=== PATIENT | male | born 1955 | race Two or more races ===

== ENCOUNTER 2021-12-04 20:24 | Inpatient (IN) | payer MEDICARE, OTHER ==
[~2021-12-04] VITALS: Ht 180.3 cm; Wt 64.9 kg
[~2021-12-04 20:24] MED LIST: ACETYLCYSTEINE; ALBUTEROL; APIX2.5T PO; ATOR40TA70 PO; FLEET ENEMA; INSU100V37 SQ; KEPP500 PO; LEVO750T46 PO; METO-411 PO; MIDO10TA PO; MIRT7.5T11 PO; MOM PO; RISP0.2514 PO; SPIR25TA6 PO
[2021-12-04 22:52] LABS: BASOPHILS % 0.5 % (0.0-2.0); EOSINOPHILS % 0.9 % (0.0-5.0); HEMATOCRIT. 35.5 % (42.0-52.0); LYMPHOCYTES % 14.5 % (20.0-50.0); MEAN CORPUSCULAR VOLUME 90.5 fL (80.0-94.0); MEAN PLATELET VOLUME 9.7 fl (7.4-10.4); MONOCYTES % 11.7 % (2.0-8.0); NEUTROPHILS % 72.4 % (40.0-76.0); PLATELET 151 x1000/uL (130-400); RED BLOOD CELL COUNT 3.93 mill/uL (4.7-6.1); RED CELL DISTRIBUTION WIDTH 15.2 % (11.6-14.6)
[2021-12-04 22:58] LABS: CHLORIDE 101 mEq/L (98-107)
[2021-12-05] MEDS ORDERED: METOPROLOL SUCCINATE 50MG ER TABLET PO SCH (09:00)
[2021-12-05] MEDS ORDERED: ACETAMINOPHEN 325MG TABLET PO PRN (10:00)
[2021-12-05] MEDS ORDERED: ONDANSETRON HCL 4MG/2ML INJ IV PRN (10:00)
[2021-12-05] MEDS ORDERED: HYDRALAZINE 20MG/ML VIAL IV PRN (11:45)
[2021-12-05] MEDS ORDERED: METOPROLOL TARTRATE 50MG TABLET PO NR (12:00)
[2021-12-05 19:24] VITALS: BP 151/101
[2021-12-05 20:00] VITALS: BP 162/98
[2021-12-05] MEDS: LEVETIRACETAM 500MG TABLET PO SCH (22:01)
[2021-12-05] MEDS: METOPROLOL TARTRATE 50MG TABLET PO SCH (22:02)
[2021-12-06] VITALS: BP 144/82
[2021-12-06 04:00] VITALS: BP 144/95
[2021-12-06 08:00] VITALS: BP 142/104
[2021-12-06] MEDS: LEVETIRACETAM 500MG TABLET PO SCH ×2 (08:59→22:00)
[2021-12-06] MEDS: METOPROLOL TARTRATE 50MG TABLET PO SCH ×2 (08:59→22:00)
[2021-12-06 12:00] VITALS: BP 128/98
[2021-12-06 16:00] VITALS: BP 148/98
[2021-12-06 20:00] VITALS: BP 145/89
[2021-12-07] VITALS: BP 139/88
[2021-12-07 04:00] VITALS: BP 145/88
[2021-12-07 07:31] LABS: BASOPHILS % 0.2 % (0.0-2.0); EOSINOPHILS % 0.3 % (0.0-5.0); HEMATOCRIT. 33.7 % (42.0-52.0); HEMOGLOBIN. 10.9 g/dL (14.0-18.0); LYMPHOCYTES % 10.7 % (20.0-50.0); MEAN CORPUSCULAR HEMOGLOBIN 28.4 pg (28.0-32.0); MEAN CORPUSCULAR VOLUME 87.7 fL (80.0-94.0); MEAN PLATELET VOLUME 9.6 fl (7.4-10.4); MONOCYTES % 9.6 % (2.0-8.0); NEUTROPHILS % 79.2 % (40.0-76.0); PLATELET 208 x1000/uL (130-400); RED BLOOD CELL COUNT 3.84 mill/uL (4.7-6.1); RED CELL DISTRIBUTION WIDTH 15.5 % (11.6-14.6)
[2021-12-07 07:45] VITALS: BP 147/76
[2021-12-07] MEDS: LEVETIRACETAM 500MG TABLET PO SCH ×2 (08:27→20:48)
[2021-12-07] MEDS: METOPROLOL TARTRATE 50MG TABLET PO SCH ×2 (08:27→20:50)
[2021-12-07 12:00] VITALS: BP 130/65
[2021-12-07 14:37] LABS: PHOSPHORUS 5.4 mg/dL (2.5-4.9)
[2021-12-07 16:10] VITALS: BP 123/69
[2021-12-07] MEDS: PANTOPRAZOLE SODIUM 40 MG/VIAL IV SCH (17:35)
[2021-12-07 19:19] LABS: FOLIC ACID (FOLATE) SERUM 9.2 ng/mL (>5.38)
[2021-12-07 20:00] VITALS: BP 153/85
[2021-12-08] VITALS: BP 138/83
[2021-12-08 04:00] VITALS: BP 159/92
[2021-12-08 06:34] LABS: BASOPHILS % 0.4 % (0.0-2.0); EOSINOPHILS % 0.3 % (0.0-5.0); HEMATOCRIT. 35.3 % (42.0-52.0); HEMOGLOBIN. 11.3 g/dL (14.0-18.0); LYMPHOCYTES % 12.8 % (20.0-50.0); MEAN CORPUSCULAR HEMOGLOBIN 28.1 pg (28.0-32.0); MEAN CORPUSCULAR VOLUME 87.8 fL (80.0-94.0); MEAN PLATELET VOLUME 9.4 fl (7.4-10.4); MONOCYTES % 11.5 % (2.0-8.0); PLATELET 185 x1000/uL (130-400); RED BLOOD CELL COUNT 4.02 mill/uL (4.7-6.1); RED CELL DISTRIBUTION WIDTH 15.2 % (11.6-14.6)
[2021-12-08 08:00] VITALS: BP 144/92
[2021-12-08] MEDS: LEVETIRACETAM 500MG TABLET PO SCH ×2 (08:20→21:03)
[2021-12-08] MEDS: PANTOPRAZOLE SODIUM 40 MG/VIAL IV SCH (08:20)
[2021-12-08] MEDS: METOPROLOL TARTRATE 50MG TABLET PO SCH ×2 (08:21→21:04)
[2021-12-08 12:00] VITALS: BP 127/86
[2021-12-08 16:03] VITALS: BP 125/82
[2021-12-08 20:02] VITALS: BP 141/84
[2021-12-08] MEDS: ATORVASTATIN CALCIUM 40MG TABLET PO SCH (21:03)
[2021-12-09] VITALS: BP 129/81
[2021-12-09 04:00] VITALS: BP 125/74
[2021-12-09 06:19] LABS: BASOPHILS % 0.2 % (0.0-2.0); EOSINOPHILS % 0.5 % (0.0-5.0); HEMOGLOBIN. 11.2 g/dL (14.0-18.0); LYMPHOCYTES % 10.5 % (20.0-50.0); MEAN CORPUSCULAR HEMOGLOBIN 27.9 pg (28.0-32.0); MEAN CORPUSCULAR VOLUME 87.1 fL (80.0-94.0); MEAN PLATELET VOLUME 9.2 fl (7.4-10.4); MONOCYTES % 10.7 % (2.0-8.0); NEUTROPHILS % 78.1 % (40.0-76.0); PLATELET 180 x1000/uL (130-400); RED BLOOD CELL COUNT 4.02 mill/uL (4.7-6.1); RED CELL DISTRIBUTION WIDTH 15.6 % (11.6-14.6)
[2021-12-09 08:00] VITALS: BP 124/89
[2021-12-09] MEDS: PANTOPRAZOLE SODIUM 40 MG/VIAL IV SCH (08:15)
[2021-12-09] MEDS: METOPROLOL TARTRATE 50MG TABLET PO SCH ×2 (08:15→20:59)
[2021-12-09] MEDS: ASPIRIN 325MG EC TABLET PO SCH (08:15)
[2021-12-09] MEDS: LEVETIRACETAM 500MG TABLET PO SCH ×2 (08:15→20:58)
[2021-12-09] MEDS ORDERED: DEXT 5%/0.9% NACL 1,000 ML IV SCH (10:30)
[2021-12-09 12:00] VITALS: BP 130/89
[2021-12-09 16:00] VITALS: BP 130/98
[2021-12-09] MEDS: DEXT 5%/0.9% NACL 1,000 ML IV SCH (18:10)
[2021-12-09 20:00] VITALS: BP 136/94
[2021-12-09] MEDS: ATORVASTATIN CALCIUM 40MG TABLET PO SCH (20:59)
[2021-12-10] VITALS: BP 140/90
[2021-12-10 04:00] VITALS: BP 127/88
[2021-12-10 06:44] LABS: CHLORIDE 97 mEq/L (98-107)
[2021-12-10 06:58] LABS: BASOPHILS % 0.4 % (0.0-2.0); EOSINOPHILS % 0.6 % (0.0-5.0); HEMATOCRIT. 37.1 % (42.0-52.0); HEMOGLOBIN. 11.9 g/dL (14.0-18.0); LYMPHOCYTES % 9.2 % (20.0-50.0); MEAN PLATELET VOLUME 9.5 fl (7.4-10.4); MONOCYTES % 10.9 % (2.0-8.0); NEUTROPHILS % 78.9 % (40.0-76.0); PLATELET 148 x1000/uL (130-400); RED BLOOD CELL COUNT 4.26 mill/uL (4.7-6.1); RED CELL DISTRIBUTION WIDTH 15.6 % (11.6-14.6)
[2021-12-10 08:00] VITALS: BP 152/98
[2021-12-10] MEDS: ASPIRIN 325MG EC TABLET PO SCH (09:32)
[2021-12-10] MEDS: PANTOPRAZOLE SODIUM 40 MG/VIAL IV SCH (09:33)
[2021-12-10] MEDS: DEXT 5%/0.9% NACL 1,000 ML IV SCH (09:33)
[2021-12-10] MEDS: LEVETIRACETAM 500MG TABLET PO SCH ×2 (09:33→20:30)
[2021-12-10] MEDS: METOPROLOL TARTRATE 50MG TABLET PO SCH ×2 (09:33→20:30)
[2021-12-10 12:00] VITALS: BP 131/89
[2021-12-10] MEDS ORDERED: SODIUM POLYSTYRENE SULFONATE 15 G/60 ML BOT NG SCH (12:30)
[2021-12-10 16:00] VITALS: BP 141/93
[2021-12-10] MEDS: FERROUS SULFATE 325MG TABLET PO SCH (18:35)
[2021-12-10 20:00] VITALS: BP 134/91
[2021-12-10] MEDS: ATORVASTATIN CALCIUM 40MG TABLET PO SCH (20:30)
[2021-12-11] VITALS: BP 133/94
[2021-12-11] MEDS ORDERED: DILTIAZEM HCL 5MG/ML 5ML VIAL IV NR ×2 (03:30)
[2021-12-11 04:00] VITALS: BP 127/86
[2021-12-11 08:00] VITALS: BP 136/94
[2021-12-11] MEDS: ASPIRIN 325MG EC TABLET PO SCH (09:00)
[2021-12-11] MEDS: PANTOPRAZOLE SODIUM 40 MG/VIAL IV SCH (09:00)
[2021-12-11] MEDS: METOPROLOL TARTRATE 50MG TABLET PO SCH ×2 (09:00→21:43)
[2021-12-11] MEDS: LEVETIRACETAM 500MG TABLET PO SCH (09:00)
[2021-12-11] MEDS: FERROUS SULFATE 325MG TABLET PO SCH (09:00)
[2021-12-11 09:30] LABS: BASOPHILS % 0.4 % (0.0-2.0); EOSINOPHILS % 0.8 % (0.0-5.0); HEMATOCRIT. 34.9 % (42.0-52.0); HEMOGLOBIN. 11.1 g/dL (14.0-18.0); LYMPHOCYTES % 9.6 % (20.0-50.0); MEAN CORPUSCULAR HEMOGLOBIN 27.5 pg (28.0-32.0); MEAN CORPUSCULAR VOLUME 86.1 fL (80.0-94.0); MEAN PLATELET VOLUME 9.2 fl (7.4-10.4); MONOCYTES % 12.2 % (2.0-8.0); PLATELET 149 x1000/uL (130-400); RED BLOOD CELL COUNT 4.05 mill/uL (4.7-6.1); RED CELL DISTRIBUTION WIDTH 15.4 % (11.6-14.6)
[2021-12-11 09:38] LABS: INR 1.1; PROTHROMBIN TIME 11.5 sec (9.6-11.0)
[2021-12-11] MEDS ORDERED: PROPOFOL 200MG/20ML VIAL IV ONE (09:57)
[2021-12-11] MEDS ORDERED: CEFAZOLIN 1000MG PREMIX 50 ML IV SCH (10:00)
[2021-12-11] MEDS ORDERED: ONDANSETRON HCL 4MG/2ML INJ ONE (10:05)
[2021-12-11] MEDS ORDERED: LIDOCAINE HCL 1% 10 MG/ML 10ML VIAL ONE (10:05)
[2021-12-11] MEDS ORDERED: DEXAMETHASONE 4MG/ML 1ML VIAL ONE (10:05)
[2021-12-11 13:00] VITALS: BP 113/73
[2021-12-11] MEDS: THIAMINE HCL 100MG TABLET GT SCH (13:00)
[2021-12-11 16:00] VITALS: BP 127/79
[2021-12-11] MEDS ORDERED: SODIUM POLYSTYRENE SULFONATE 15 G/60 ML BOT PO NR (18:15)
[2021-12-11 20:00] VITALS: BP 121/67
[2021-12-11] MEDS: LEVETIRACETAM 500MG/5ML CUP GT SCH (21:42)
[2021-12-11] MEDS: ATORVASTATIN CALCIUM 40MG TABLET PO SCH (21:42)
[2021-12-12] VITALS (7 sets, daily range): BP systolic 112–139; BP diastolic 67–85
[2021-12-12] MEDS: DILTIAZEM HCL 30MG TABLET PO SCH ×3 (06:12→22:31)
[2021-12-12] MEDS: PANTOPRAZOLE SODIUM 40 MG/VIAL IV SCH (09:24)
[2021-12-12] MEDS: METOPROLOL TARTRATE 50MG TABLET PO SCH ×2 (09:25→22:32)
[2021-12-12] MEDS: THIAMINE HCL 100MG TABLET GT SCH (09:25)
[2021-12-12] MEDS: ASPIRIN 325MG TABLET GT SCH (09:26)
[2021-12-12] MEDS: LEVETIRACETAM 500MG/5ML CUP GT SCH ×2 (09:26→22:31)
[2021-12-12] MEDS: FERROUS SULFATE 300MG/5ML UDC GT SCH ×2 (09:26→17:47)
[2021-12-12] MEDS: ATORVASTATIN CALCIUM 40MG TABLET PO SCH (22:32)
[2021-12-13] VITALS (7 sets, daily range): BP systolic 103–141; BP diastolic 60–73
[2021-12-13] MEDS: DILTIAZEM HCL 30MG TABLET PO SCH ×3 (06:00→21:40)
[2021-12-13] MEDS: LEVETIRACETAM 500MG/5ML CUP GT SCH ×2 (08:53→21:41)
[2021-12-13] MEDS: PANTOPRAZOLE SODIUM 40 MG/VIAL IV SCH (08:53)
[2021-12-13] MEDS: FERROUS SULFATE 300MG/5ML UDC GT SCH ×2 (08:53→17:42)
[2021-12-13] MEDS: METOPROLOL TARTRATE 50MG TABLET PO SCH ×2 (08:54→21:41)
[2021-12-13] MEDS: ASPIRIN 325MG TABLET GT SCH (08:54)
[2021-12-13] MEDS: THIAMINE HCL 100MG TABLET GT SCH (08:54)
[2021-12-13] MEDS: ATORVASTATIN CALCIUM 40MG TABLET PO SCH (21:40)
[2021-12-14] VITALS: BP 108/75
[2021-12-14 04:00] VITALS: BP 116/80
[2021-12-14] MEDS: DILTIAZEM HCL 30MG TABLET PO SCH (05:25)
[2021-12-14 08:00] VITALS: BP 110/71
[2021-12-14] MEDS: THIAMINE HCL 100MG TABLET GT SCH (08:32)
[2021-12-14] MEDS: LEVETIRACETAM 500MG/5ML CUP GT SCH (08:32)
[2021-12-14] MEDS: FERROUS SULFATE 300MG/5ML UDC GT SCH (08:32)
[2021-12-14] MEDS: METOPROLOL TARTRATE 50MG TABLET PO SCH (08:32)
[2021-12-14] MEDS: PANTOPRAZOLE SODIUM 40 MG/VIAL IV SCH (08:32)
[2021-12-14] MEDS: ASPIRIN 325MG TABLET GT SCH (08:32)
== END 2021-12-14 10:30 | DRG 551 ==
LOC: ER 20:24 → MICUSO 12-05 02:00 → 8WST 12-05 16:35
PROVIDERS: ADMIT Internal Medicine; ATTEND Internal Medicine
PROC: 0DH68UZ Insertion of Feeding Device into Stomach, Via Natural or Artificial Opening Endoscopic (ICD-10-PCS; 2021-12-07)
PROC: 5A1D70Z Performance of Urinary Filtration, Intermittent, Less than 6 Hours Per Day (ICD-10-PCS; principal; 2021-12-11)
DX: M43.12 Spondylolisthesis, cervical region (principal); E43 Unspecified severe protein-calorie malnutrition; N18.6 End stage renal disease; G92.8 Other toxic encephalopathy; I13.2 Hypertensive heart and chronic kidney disease with heart failure and with stage 5 chronic kidney disease, or end stage renal disease; Z68.1 Body mass index [BMI] 19.9 or less, adult; I69.354 Hemiplegia and hemiparesis following cerebral infarction affecting left non-dominant side; R13.10 Dysphagia, unspecified; K29.70 Gastritis, unspecified, without bleeding; G40.909 Epilepsy, unspecified, not intractable, without status epilepticus; E87.5 Hyperkalemia; E78.5 Hyperlipidemia, unspecified; B19.20 Unspecified viral hepatitis C without hepatic coma; Z20.822 Contact with and (suspected) exposure to COVID-19; E78.00 Pure hypercholesterolemia, unspecified; I50.9 Heart failure, unspecified; D69.6 Thrombocytopenia, unspecified; K44.9 Diaphragmatic hernia without obstruction or gangrene; E11.22 Type 2 diabetes mellitus with diabetic chronic kidney disease; D63.8 Anemia in other chronic diseases classified elsewhere; I25.10 Atherosclerotic heart disease of native coronary artery without angina pectoris; E88.09 Other disorders of plasma-protein metabolism, not elsewhere classified; R62.7 Adult failure to thrive; F03.90 Unspecified dementia, unspecified severity, without behavioral disturbance, psychotic disturbance, mood disturbance, and anxiety; Z79.899 Other long term (current) drug therapy; Z99.2 Dependence on renal dialysis; Z95.0 Presence of cardiac pacemaker; Z79.01 Long term (current) use of anticoagulants
CPT/HCPCS: 36415; 70490; 71045; 74018; 80048; 80053; 82140; 82550; 82607; 82728; 82746; 82962; 83540; 83550; 84100; 84132; 84443; 85025; 85044; 87426; 92610; 93005; 95816; 97162; 97166; 97530; 99285; C9113; J0360; J0690; J1100; J2405; J2704; J3490; J7042

== ENCOUNTER 2021-12-15 13:36 | Inpatient (IN) | payer MEDICARE, OTHER ==
[~2021-12-15] VITALS: Ht 172.7 cm; Wt 71.2 kg
[2021-12-15] MEDS ORDERED: METHYLPREDNISOLONE SOD SUCC 125 MG/2 ML VIAL IV STA (13:50)
[2021-12-15] MEDS ORDERED: ALBUTEROL (0.083%) 2.5MG/3ML NEB HHN STA (13:50)
[2021-12-15 14:21] LABS: BG BASE EXCESS 0.1 mmol/L (-2.0-2.0); BG CARBOXYHEMOGLOBIN 0.1 % (0.5-1.5); BG DEOXYHEMOGLOBIN 3.2 % (0.0-5.0); BG METHEMOGLOBIN 0.6 % (0.0-1.5); BG OXYGEN SATURATION 96.8 % (92.0-98.5); BG OXYHEMOGLOBIN 96.1 % (94.0-97.0); BG PCO2 36.3 mmHg (35.0-45.0); BG PH 7.438 (7.350-7.450); BG PO2 95.1 mmHg (75.0-100.0); BG SAMPLE SITE LEFT RADIAL; BG TOTAL HEMOGLOBIN 11.5 g/dL (12.0-18.0); BG VENT MODE HHN TX.
[2021-12-15 15:05] LABS: BASOPHILS % 0.5 % (0.0-2.0); EOSINOPHILS % 2.8 % (0.0-5.0); HEMATOCRIT. 38.1 % (42.0-52.0); HEMOGLOBIN. 11.9 g/dL (14.0-18.0); LYMPHOCYTES % 11.3 % (20.0-50.0); MEAN CORPUSCULAR HEMOGLOBIN 27.8 pg (28.0-32.0); MEAN CORPUSCULAR VOLUME 88.7 fL (80.0-94.0); MONOCYTES % 7.2 % (2.0-8.0); NEUTROPHILS % 78.2 % (40.0-76.0); RED BLOOD CELL COUNT 4.29 mill/uL (4.7-6.1); RED CELL DISTRIBUTION WIDTH 16.9 % (11.6-14.6)
[2021-12-15 15:12] LABS: CHLORIDE 107 mEq/L (98-107)
[2021-12-15 15:40] LABS: ETHANOL BLOOD < 10 mg/dL
[2021-12-15] MEDS ORDERED: PIPERACILLIN/TAZ 3.375G PREMIX 50 ML IV ONE (16:00)
[2021-12-15] MEDS ORDERED: VANCOMYCIN 1G PREMIX 200 ML IV SCH (16:00)
[2021-12-15] MEDS ORDERED: ASPIRIN 325MG EC TABLET PO ONE (16:00)
[2021-12-15 16:02] LABS: *AMPHETAMINES SCREEN URINE NEGATIVE (NEGATIVE); *BARBITURATES SCREEN URINE NEGATIVE (NEGATIVE); *BENZODIAZEPINES SCREEN URINE NEGATIVE (NEGATIVE); *COCAINE SCREEN URINE NEGATIVE (NEGATIVE); CANNABINOID URINE SCREEN NEGATIVE (NEGATIVE); METHADONE URINE SCREEN NEGATIVE (NEGATIVE); OPIATES URINE SCREEN NEGATIVE (NEGATIVE); PHENCYCLIDINE URINE SCREEN NEGATIVE (NEGATIVE)
[2021-12-15 16:02] LABS: PLATELET 121 x1000/uL (130-400); PLATELET ESTIMATE SLIGHTLY DECREASED
[2021-12-15] MEDS ORDERED: ASPIRIN 300MG SUPP PR NR (17:30)
[2021-12-15] MEDS ORDERED: DILTIAZEM 125MG/125ML PMX 125 ML IV ONE (22:00)
[2021-12-15] MEDS ORDERED: DIGOXIN 500MCG/2ML AMP IV NR (22:00)
[2021-12-15 22:24] LABS: BG BASE EXCESS 1.3 mmol/L (-2.0-2.0); BG CARBOXYHEMOGLOBIN 0.2 % (0.5-1.5); BG DEOXYHEMOGLOBIN 0.3 % (0.0-5.0); BG FRACTION INSPIRED OXYGEN 100; BG METHEMOGLOBIN 0.5 % (0.0-1.5); BG OXYGEN SATURATION 99.7 % (92.0-98.5); BG PCO2 36.7 mmHg (35.0-45.0); BG PH 7.452 (7.350-7.450); BG PO2 335.3 mmHg (75.0-100.0); BG SAMPLE SITE RIGHT RADIAL; BG TOTAL HEMOGLOBIN 12.8 g/dL (12.0-18.0); BG VENT MODE MASK - BIPAP
[2021-12-15] MEDS ORDERED: SODIUM CHLORIDE 0.9% 250 ML IV NR (22:45)
[2021-12-16] VITALS (93 sets, daily range): BP systolic 93–154; BP diastolic 51–105
[2021-12-16] MEDS ORDERED: PHENYLEPHRINE 50 MG in DEXT 5% WATER 245 ML IV PRN (01:15)
[2021-12-16] MEDS ORDERED: DEXTROSE 50% WATER 50ML SYRINGE IV PRN (01:15)
[2021-12-16] MEDS ORDERED: DILTIAZEM HCL 125 MG in DEXT 5% WATER 100 ML IV PRN (01:15)
[2021-12-16] MEDS: BLOOD SUGAR DIAGNOSTIC STRIP TEST SCH ×3 (05:08→16:57)
[2021-12-16 05:13] LABS: CHLORIDE 105 mEq/L (98-107)
[2021-12-16 05:16] LABS: HEMATOCRIT. 35.2 % (42.0-52.0); HEMOGLOBIN. 10.9 g/dL (14.0-18.0); MEAN CORPUSCULAR HEMOGLOBIN 27.2 pg (28.0-32.0); MEAN CORPUSCULAR VOLUME 87.3 fL (80.0-94.0); MEAN PLATELET VOLUME 10.7 fl (7.4-10.4); PLATELET 152 x1000/uL (130-400); RED BLOOD CELL COUNT 4.03 mill/uL (4.7-6.1); RED CELL DISTRIBUTION WIDTH 16.4 % (11.6-14.6)
[2021-12-16] MEDS: INSULIN LISPRO 100 UNITS/ML SUBCUT SCH ×3 (05:20→16:57)
[2021-12-16] MEDS ORDERED: INSULIN LISPRO 100 UNITS/ML SUBCUT SCH (07:00)
[2021-12-16 08:14] LABS: PLATELET ESTIMATE NORMAL
[2021-12-16] MEDS: LEVETIRACETAM 500MG TABLET PO SCH ×2 (08:51→21:30)
[2021-12-16] MEDS: APIXABAN 2.5 MG TABLET PO SCH ×2 (08:51→16:51)
[2021-12-16] MEDS: MIDODRINE HCL 5MG TABLET PO SCH ×3 (08:51→16:51)
[2021-12-16] MEDS: PIPERACILLIN/TAZOBACTAM 3.375 G in DEXTROSE 5% WATER 50 ML IV SCH ×2 (08:51→21:30)
[2021-12-16 11:28] LABS: BG CARBOXYHEMOGLOBIN 0.3 % (0.5-1.5); BG DEOXYHEMOGLOBIN 1.7 % (0.0-5.0); BG FRACTION INSPIRED OXYGEN 60; BG HCO3 ACT 20.3 mmol/L (22.0-26.0); BG METHEMOGLOBIN 0.2 % (0.0-1.5); BG OXYGEN SATURATION 98.3 % (92.0-98.5); BG OXYHEMOGLOBIN 97.8 % (94.0-97.0); BG PCO2 30.9 mmHg (35.0-45.0); BG PH 7.435 (7.350-7.450); BG PO2 136.1 mmHg (75.0-100.0); BG SAMPLE SITE RIGHT RADIAL; BG TOTAL HEMOGLOBIN 12.1 g/dL (12.0-18.0); BG VENT MODE MASK - SIMPLE
[2021-12-16] MEDS ORDERED: VANCOMYCIN 750MG PREMIX 150 ML IV NR (16:00)
[2021-12-16] MEDS: ATORVASTATIN CALCIUM 40MG TABLET PO SCH (21:30)
[2021-12-17] VITALS (50 sets, daily range): BP systolic 97–140; BP diastolic 57–83
[2021-12-17 05:43] LABS: BASOPHILS % 0.1 % (0.0-2.0); EOSINOPHILS % 0.2 % (0.0-5.0); HEMOGLOBIN. 10.7 g/dL (14.0-18.0); LYMPHOCYTES % 7.2 % (20.0-50.0); MEAN CORPUSCULAR HEMOGLOBIN 27.1 pg (28.0-32.0); MEAN CORPUSCULAR VOLUME 88.2 fL (80.0-94.0); MEAN PLATELET VOLUME 10.1 fl (7.4-10.4); MONOCYTES % 7.9 % (2.0-8.0); NEUTROPHILS % 84.6 % (40.0-76.0); PLATELET 183 x1000/uL (130-400); RED BLOOD CELL COUNT 3.97 mill/uL (4.7-6.1); RED CELL DISTRIBUTION WIDTH 16.8 % (11.6-14.6)
[2021-12-17] MEDS: BLOOD SUGAR DIAGNOSTIC STRIP TEST SCH ×5 (05:46→23:35)
[2021-12-17] MEDS: INSULIN LISPRO 100 UNITS/ML SUBCUT SCH ×5 (05:46→23:36)
[2021-12-17] MEDS: PIPERACILLIN/TAZOBACTAM 3.375 G in DEXTROSE 5% WATER 50 ML IV SCH ×2 (09:19→21:13)
[2021-12-17] MEDS: APIXABAN 2.5 MG TABLET PO SCH ×2 (09:19→17:00)
[2021-12-17] MEDS: LEVETIRACETAM 500MG TABLET PO SCH ×2 (09:19→21:13)
[2021-12-17] MEDS: MIDODRINE HCL 5MG TABLET PO SCH ×3 (09:19→17:00)
[2021-12-17] MEDS: DILTIAZEM HCL 30MG TABLET PO SCH ×2 (11:24→18:00)
[2021-12-17] MEDS: ATORVASTATIN CALCIUM 40MG TABLET PO SCH (21:13)
[2021-12-18] VITALS: BP_SYST 125; BP_SYST 149; BP_DIAS 56; BP_DIAS 66
[2021-12-18 00:32] LABS: HEPATITIS B SURFACE ANTIGEN NEGATIVE
[2021-12-18] MEDS: DILTIAZEM HCL 30MG TABLET PO SCH ×4 (00:43→17:08)
[2021-12-18 04:00] VITALS: BP 90/58
[2021-12-18] MEDS: BLOOD SUGAR DIAGNOSTIC STRIP TEST SCH ×3 (05:14→17:11)
[2021-12-18] MEDS: INSULIN LISPRO 100 UNITS/ML SUBCUT SCH ×3 (05:15→17:11)
[2021-12-18 07:18] LABS: BASOPHILS % 0.4 % (0.0-2.0); EOSINOPHILS % 3.4 % (0.0-5.0); HEMATOCRIT. 34.4 % (42.0-52.0); HEMOGLOBIN. 10.7 g/dL (14.0-18.0); LYMPHOCYTES % 10.9 % (20.0-50.0); MEAN CORPUSCULAR HEMOGLOBIN 26.8 pg (28.0-32.0); MEAN CORPUSCULAR VOLUME 85.9 fL (80.0-94.0); MEAN PLATELET VOLUME 10.8 fl (7.4-10.4); MONOCYTES % 8.2 % (2.0-8.0); NEUTROPHILS % 77.1 % (40.0-76.0); PLATELET 188 x1000/uL (130-400); RED BLOOD CELL COUNT 4.01 mill/uL (4.7-6.1); RED CELL DISTRIBUTION WIDTH 16.5 % (11.6-14.6)
[2021-12-18 08:00] VITALS: BP 111/60
[2021-12-18] MEDS: MIDODRINE HCL 5MG TABLET PO SCH ×3 (09:29→17:08)
[2021-12-18] MEDS: LEVETIRACETAM 500MG TABLET PO SCH ×2 (09:29→22:00)
[2021-12-18] MEDS: PIPERACILLIN/TAZOBACTAM 3.375 G in DEXTROSE 5% WATER 50 ML IV SCH ×2 (09:29→22:00)
[2021-12-18] MEDS: APIXABAN 2.5 MG TABLET PO SCH ×2 (09:29→17:07)
[2021-12-18 11:52] LABS: BG BASE EXCESS -1.8 mmol/L (-2.0-2.0); BG CARBOXYHEMOGLOBIN 0.1 % (0.5-1.5); BG DEOXYHEMOGLOBIN 6.8 % (0.0-5.0); BG HCO3 ACT 21.9 mmol/L (22.0-26.0); BG METHEMOGLOBIN 0.3 % (0.0-1.5); BG OXYGEN SATURATION 93.2 % (92.0-98.5); BG OXYHEMOGLOBIN 92.8 % (94.0-97.0); BG PCO2 33.9 mmHg (35.0-45.0); BG PH 7.429 (7.350-7.450); BG PO2 72.9 mmHg (75.0-100.0); BG SAMPLE SITE RIGHT RADIAL; BG VENT MODE MASK - SIMPLE
[2021-12-18 12:00] VITALS: BP 118/76
[2021-12-18 16:00] VITALS: BP 117/69
[2021-12-18] MEDS ORDERED: VANCOMYCIN 750MG PREMIX 150 ML IV NR (16:00)
[2021-12-18 20:00] VITALS: BP 118/83
[2021-12-18] MEDS: ATORVASTATIN CALCIUM 40MG TABLET PO SCH (22:01)
[2021-12-19] VITALS: BP 103/80
[2021-12-19] MEDS: BLOOD SUGAR DIAGNOSTIC STRIP TEST SCH ×5 (00:25→23:38)
[2021-12-19 04:00] VITALS: BP 108/80
[2021-12-19] MEDS: DILTIAZEM HCL 30MG TABLET PO SCH ×4 (05:30→18:00)
[2021-12-19] MEDS: INSULIN LISPRO 100 UNITS/ML SUBCUT SCH ×5 (05:30→23:39)
[2021-12-19 08:00] VITALS: BP 110/74
[2021-12-19] MEDS: MIDODRINE HCL 5MG TABLET PO SCH ×3 (08:10→17:00)
[2021-12-19] MEDS: PIPERACILLIN/TAZOBACTAM 3.375 G in DEXTROSE 5% WATER 50 ML IV SCH ×2 (08:10→22:07)
[2021-12-19] MEDS: APIXABAN 2.5 MG TABLET PO SCH ×2 (08:10→17:00)
[2021-12-19] MEDS: LEVETIRACETAM 500MG TABLET PO SCH ×2 (08:10→22:07)
[2021-12-19 08:27] LABS: HEMATOCRIT. 34.7 % (42.0-52.0); HEMOGLOBIN. 10.8 g/dL (14.0-18.0); MEAN CORPUSCULAR HEMOGLOBIN 27.1 pg (28.0-32.0); MEAN PLATELET VOLUME 10.4 fl (7.4-10.4); PLATELET 163 x1000/uL (130-400); RED BLOOD CELL COUNT 3.98 mill/uL (4.7-6.1); RED CELL DISTRIBUTION WIDTH 16.5 % (11.6-14.6)
[2021-12-19 12:00] VITALS: BP 125/81
[2021-12-19] MEDS ORDERED: DEXTROSE 50% WATER 50ML SYRINGE IV NR (12:15)
[2021-12-19] MEDS: DEXT 5%/0.9% NACL 1,000 ML IV SCH (13:13)
[2021-12-19] MEDS ORDERED: DEXAMETHASONE 4MG TABLET PO SCH (13:15)
[2021-12-19 13:46] LABS: BG BASE EXCESS -5.6 mmol/L (-2.0-2.0); BG DEOXYHEMOGLOBIN 4.6 % (0.0-5.0); BG FRACTION INSPIRED OXYGEN 100; BG HCO3 ACT 19.1 mmol/L (22.0-26.0); BG METHEMOGLOBIN 0.3 % (0.0-1.5); BG OXYGEN SATURATION 95.4 % (92.0-98.5); BG OXYHEMOGLOBIN 95.1 % (94.0-97.0); BG PCO2 34.6 mmHg (35.0-45.0); BG PO2 88.8 mmHg (75.0-100.0); BG SAMPLE SITE RIGHT BRACHIAL; BG TOTAL HEMOGLOBIN 11.7 g/dL (12.0-18.0); BG VENT MODE MASK - NRB
[2021-12-19 16:00] VITALS: BP 113/77
[2021-12-19 20:00] VITALS: BP 141/78
[2021-12-19] MEDS: ATORVASTATIN CALCIUM 40MG TABLET PO SCH (22:07)
[2021-12-19 22:56] LABS: PLATELET ESTIMATE NORMAL
[2021-12-20] VITALS: BP 97/71
[2021-12-20 04:00] VITALS: BP 116/73
[2021-12-20] MEDS: INSULIN LISPRO 100 UNITS/ML SUBCUT SCH ×3 (05:47→18:00)
[2021-12-20] MEDS: DILTIAZEM HCL 30MG TABLET PO SCH ×4 (05:47→18:00)
[2021-12-20] MEDS: BLOOD SUGAR DIAGNOSTIC STRIP TEST SCH ×3 (05:47→18:00)
[2021-12-20 08:00] VITALS: BP 133/79
[2021-12-20 08:11] LABS: HEMATOCRIT. 34.6 % (42.0-52.0); HEMOGLOBIN. 10.6 g/dL (14.0-18.0); MEAN CORPUSCULAR HEMOGLOBIN 27.1 pg (28.0-32.0); MEAN CORPUSCULAR VOLUME 88.2 fL (80.0-94.0); PLATELET 133 x1000/uL (130-400); RED BLOOD CELL COUNT 3.92 mill/uL (4.7-6.1); RED CELL DISTRIBUTION WIDTH 16.4 % (11.6-14.6)
[2021-12-20] MEDS: APIXABAN 2.5 MG TABLET PO SCH ×2 (08:43→18:00)
[2021-12-20] MEDS: LEVETIRACETAM 500MG TABLET PO SCH ×2 (08:43→20:51)
[2021-12-20] MEDS: PIPERACILLIN/TAZOBACTAM 3.375 G in DEXTROSE 5% WATER 50 ML IV SCH ×2 (08:43→20:37)
[2021-12-20] MEDS: DEXT 5%/0.9% NACL 1,000 ML IV SCH (08:43)
[2021-12-20] MEDS: MIDODRINE HCL 5MG TABLET PO SCH ×3 (08:44→18:00)
[2021-12-20] MEDS: DEXAMETHASONE 6MG TABLET PO SCH (08:44)
[2021-12-20 12:00] VITALS: BP 129/67
[2021-12-20 16:00] VITALS: BP 112/69
[2021-12-20] MEDS ORDERED: VANCOMYCIN 500MG PREMIX 100 ML IV NR (18:00)
[2021-12-20 20:00] VITALS: BP 115/73
[2021-12-20] MEDS: ATORVASTATIN CALCIUM 40MG TABLET PO SCH (20:52)
[2021-12-21] VITALS: BP 153/89
[2021-12-21] MEDS: DILTIAZEM HCL 30MG TABLET PO SCH ×4 (01:01→17:20)
[2021-12-21 04:00] VITALS: BP 136/85
[2021-12-21] MEDS: INSULIN LISPRO 100 UNITS/ML SUBCUT SCH ×4 (06:00→17:18)
[2021-12-21] MEDS: BLOOD SUGAR DIAGNOSTIC STRIP TEST SCH ×4 (06:00→17:18)
[2021-12-21 07:14] LABS: HEMATOCRIT. 31.9 % (42.0-52.0); HEMOGLOBIN. 10.1 g/dL (14.0-18.0); MEAN CORPUSCULAR HEMOGLOBIN 27.4 pg (28.0-32.0); MEAN CORPUSCULAR VOLUME 86.6 fL (80.0-94.0); MEAN PLATELET VOLUME 10.4 fl (7.4-10.4); PLATELET 163 x1000/uL (130-400); RED BLOOD CELL COUNT 3.69 mill/uL (4.7-6.1); RED CELL DISTRIBUTION WIDTH 16.3 % (11.6-14.6)
[2021-12-21 08:00] VITALS: BP 144/87
[2021-12-21] MEDS: MIDODRINE HCL 5MG TABLET PO SCH ×3 (08:47→17:18)
[2021-12-21] MEDS: APIXABAN 2.5 MG TABLET PO SCH ×2 (09:07→17:17)
[2021-12-21] MEDS: LEVETIRACETAM 500MG TABLET PO SCH ×2 (09:07→21:27)
[2021-12-21] MEDS: DEXAMETHASONE 6MG TABLET PO SCH (09:07)
[2021-12-21] MEDS: PIPERACILLIN/TAZOBACTAM 3.375 G in DEXTROSE 5% WATER 50 ML IV SCH ×2 (09:07→21:27)
[2021-12-21 09:35] LABS: BG BASE EXCESS -2.8 mmol/L (-2.0-2.0); BG CARBOXYHEMOGLOBIN 0.3 % (0.5-1.5); BG DEOXYHEMOGLOBIN 2.8 % (0.0-5.0); BG FRACTION INSPIRED OXYGEN 100; BG HCO3 ACT 21.6 mmol/L (22.0-26.0); BG METHEMOGLOBIN 0.2 % (0.0-1.5); BG OXYGEN SATURATION 97.2 % (92.0-98.5); BG OXYHEMOGLOBIN 96.7 % (94.0-97.0); BG PCO2 36.1 mmHg (35.0-45.0); BG PH 7.395 (7.350-7.450); BG PO2 102.1 mmHg (75.0-100.0); BG SAMPLE SITE RIGHT RADIAL; BG VENT MODE MASK - NRB
[2021-12-21 12:00] VITALS: BP 134/72
[2021-12-21 13:53] LABS: PLATELET ESTIMATE NORMAL
[2021-12-21 16:00] VITALS: BP 129/82
[2021-12-21 17:21] LABS: PLATELET ESTIMATE NORMAL
[2021-12-21 20:00] VITALS: BP 137/84
[2021-12-21] MEDS: ATORVASTATIN CALCIUM 40MG TABLET PO SCH (21:27)
[2021-12-22] VITALS: BP 134/83
[2021-12-22] MEDS: BLOOD SUGAR DIAGNOSTIC STRIP TEST SCH ×4 (00:43→18:01)
[2021-12-22] MEDS: DILTIAZEM HCL 30MG TABLET PO SCH ×4 (00:44→18:07)
[2021-12-22 04:00] VITALS: BP 132/79
[2021-12-22] MEDS: INSULIN LISPRO 100 UNITS/ML SUBCUT SCH ×4 (05:48→18:00)
[2021-12-22 08:00] VITALS: BP 123/68
[2021-12-22] MEDS: LEVETIRACETAM 500MG TABLET PO SCH ×2 (08:37→20:21)
[2021-12-22] MEDS: APIXABAN 2.5 MG TABLET PO SCH ×2 (08:37→17:47)
[2021-12-22] MEDS: MIDODRINE HCL 5MG TABLET PO SCH ×3 (08:37→17:48)
[2021-12-22] MEDS: DEXAMETHASONE 6MG TABLET PO SCH (08:37)
[2021-12-22 12:00] VITALS: BP 127/72
[2021-12-22 16:00] VITALS: BP 129/73
[2021-12-22 20:00] VITALS: BP 128/80
[2021-12-22] MEDS: ATORVASTATIN CALCIUM 40MG TABLET PO SCH (20:21)
[2021-12-23] VITALS: BP 121/71
[2021-12-23] MEDS: BLOOD SUGAR DIAGNOSTIC STRIP TEST SCH ×4 (00:30→17:18)
[2021-12-23] MEDS: DILTIAZEM HCL 30MG TABLET PO SCH ×4 (00:37→18:19)
[2021-12-23 04:00] VITALS: BP 128/77
[2021-12-23] MEDS: INSULIN LISPRO 100 UNITS/ML SUBCUT SCH ×4 (06:00→17:18)
[2021-12-23 06:46] LABS: BASOPHILS % 0.1 % (0.0-2.0); HEMATOCRIT. 38.2 % (42.0-52.0); HEMOGLOBIN. 11.9 g/dL (14.0-18.0); LYMPHOCYTES % 12.2 % (20.0-50.0); MEAN CORPUSCULAR HEMOGLOBIN 27.3 pg (28.0-32.0); MEAN CORPUSCULAR VOLUME 87.9 fL (80.0-94.0); MEAN PLATELET VOLUME 9.6 fl (7.4-10.4); MONOCYTES % 8.9 % (2.0-8.0); NEUTROPHILS % 78.8 % (40.0-76.0); PLATELET 185 x1000/uL (130-400); RED BLOOD CELL COUNT 4.35 mill/uL (4.7-6.1); RED CELL DISTRIBUTION WIDTH 16.6 % (11.6-14.6)
[2021-12-23 07:30] LABS: CHLORIDE 101 mEq/L (98-107)
[2021-12-23 08:00] VITALS: BP 138/86
[2021-12-23 08:39] LABS: BG BASE EXCESS -3.4 mmol/L (-2.0-2.0); BG CARBOXYHEMOGLOBIN 0.2 % (0.5-1.5); BG DEOXYHEMOGLOBIN 1.3 % (0.0-5.0); BG FRACTION INSPIRED OXYGEN 100; BG HCO3 ACT 19.6 mmol/L (22.0-26.0); BG METHEMOGLOBIN 0.8 % (0.0-1.5); BG OXYGEN SATURATION 98.7 % (92.0-98.5); BG OXYHEMOGLOBIN 97.7 % (94.0-97.0); BG PCO2 29.3 mmHg (35.0-45.0); BG PH 7.444 (7.350-7.450); BG PO2 184.7 mmHg (75.0-100.0); BG SAMPLE SITE RIGHT RADIAL; BG TOTAL HEMOGLOBIN 11.6 g/dL (12.0-18.0); BG VENT MODE MASK - NRB
[2021-12-23] MEDS: MIDODRINE HCL 5MG TABLET PO SCH ×3 (09:00→17:00)
[2021-12-23] MEDS: DEXAMETHASONE 6MG TABLET PO SCH (09:28)
[2021-12-23] MEDS: APIXABAN 2.5 MG TABLET PO SCH ×2 (09:28→18:19)
[2021-12-23] MEDS: LEVETIRACETAM 500MG TABLET PO SCH ×2 (09:28→20:11)
[2021-12-23 12:00] VITALS: BP 149/90
[2021-12-23 16:00] VITALS: BP 132/87
[2021-12-23 20:00] VITALS: BP 139/80
[2021-12-23] MEDS: ATORVASTATIN CALCIUM 40MG TABLET PO SCH (20:11)
[2021-12-24] VITALS: BP 142/85
[2021-12-24] MEDS: BLOOD SUGAR DIAGNOSTIC STRIP TEST SCH ×4 (00:32→17:55)
[2021-12-24] MEDS: DILTIAZEM HCL 30MG TABLET PO SCH ×5 (00:53→20:52)
[2021-12-24 04:00] VITALS: BP_SYST 107; BP_SYST 143; BP_DIAS 33; BP_DIAS 80
[2021-12-24] MEDS: INSULIN LISPRO 100 UNITS/ML SUBCUT SCH ×4 (05:49→17:56)
[2021-12-24 07:39] LABS: HEMATOCRIT. 35.2 % (42.0-52.0); HEMOGLOBIN. 11.2 g/dL (14.0-18.0); MEAN CORPUSCULAR HEMOGLOBIN 27.6 pg (28.0-32.0); MEAN CORPUSCULAR VOLUME 86.9 fL (80.0-94.0); MEAN PLATELET VOLUME 9.5 fl (7.4-10.4); PLATELET 179 x1000/uL (130-400); RED BLOOD CELL COUNT 4.05 mill/uL (4.7-6.1); RED CELL DISTRIBUTION WIDTH 16.5 % (11.6-14.6)
[2021-12-24 08:00] VITALS: BP 139/70
[2021-12-24] MEDS: LEVETIRACETAM 500MG TABLET PO SCH ×2 (08:38→21:00)
[2021-12-24] MEDS: DEXAMETHASONE 6MG TABLET PO SCH (08:38)
[2021-12-24] MEDS: APIXABAN 2.5 MG TABLET PO SCH ×2 (08:40→18:23)
[2021-12-24] MEDS: MIDODRINE HCL 5MG TABLET PO SCH ×3 (08:40→17:00)
[2021-12-24 08:50] LABS: BG BASE EXCESS -4.3 mmol/L (-2.0-2.0); BG CARBOXYHEMOGLOBIN 0.1 % (0.5-1.5); BG DEOXYHEMOGLOBIN 0.8 % (0.0-5.0); BG FRACTION INSPIRED OXYGEN 60; BG HCO3 ACT 20.7 mmol/L (22.0-26.0); BG METHEMOGLOBIN 0.2 % (0.0-1.5); BG OXYGEN SATURATION 99.2 % (92.0-98.5); BG OXYHEMOGLOBIN 98.9 % (94.0-97.0); BG PCO2 37.7 mmHg (35.0-45.0); BG PH 7.358 (7.350-7.450); BG PO2 227.5 mmHg (75.0-100.0); BG SAMPLE SITE RIGHT RADIAL; BG TOTAL HEMOGLOBIN 11.1 g/dL (12.0-18.0); BG VENT MODE MASK - NRB
[2021-12-24 12:00] VITALS: BP 147/88
[2021-12-24 15:03] LABS: PLATELET ESTIMATE NORMAL
[2021-12-24 16:00] VITALS: BP 133/79
[2021-12-24 20:00] VITALS: BP 142/88
[2021-12-24] MEDS: ATORVASTATIN CALCIUM 40MG TABLET PO SCH (21:00)
[2021-12-25] VITALS: BP 149/87
[2021-12-25 04:00] VITALS: BP 144/90
[2021-12-25] MEDS: BLOOD SUGAR DIAGNOSTIC STRIP TEST SCH ×4 (06:00→17:21)
[2021-12-25] MEDS: INSULIN LISPRO 100 UNITS/ML SUBCUT SCH ×4 (06:00→17:21)
[2021-12-25] MEDS: DILTIAZEM HCL 30MG TABLET PO SCH ×3 (06:40→17:22)
[2021-12-25 08:00] VITALS: BP 157/82
[2021-12-25] MEDS: MIDODRINE HCL 5MG TABLET PO SCH ×3 (08:47→17:21)
[2021-12-25] MEDS: APIXABAN 2.5 MG TABLET PO SCH ×2 (09:11→17:21)
[2021-12-25] MEDS: DEXAMETHASONE 6MG TABLET PO SCH (09:11)
[2021-12-25] MEDS: LEVETIRACETAM 500MG TABLET PO SCH ×2 (09:11→21:14)
[2021-12-25 12:00] VITALS: BP 141/91
[2021-12-25 16:00] VITALS: BP 122/85
[2021-12-25] MEDS ORDERED: RISP0.2514 PO (17:42)
[2021-12-25] MEDS ORDERED: ATOR40TA70 PO (17:42)
[2021-12-25] MEDS ORDERED: LEVE500T19 PO (17:42)
[2021-12-25] MEDS ORDERED: METO-411 PO (17:42)
[2021-12-25] MEDS ORDERED: MIDO10TA PO (17:42)
[2021-12-25] MEDS ORDERED: APIX2.5T PO (17:42)
[2021-12-25] MEDS ORDERED: SPIR25TA6 PO (17:42)
[2021-12-25] MEDS ORDERED: MIRT7.5T11 PO (17:42)
[2021-12-25] MEDS ORDERED: INSLIS SUBCUT (17:42)
[2021-12-25 20:00] VITALS: BP 153/90
[2021-12-25] MEDS: ATORVASTATIN CALCIUM 40MG TABLET PO SCH (21:14)
[2021-12-26] VITALS: BP_SYST 152; BP_SYST 153; BP_DIAS 89; BP_DIAS 90
[2021-12-26] MEDS: BLOOD SUGAR DIAGNOSTIC STRIP TEST SCH ×4 (00:05→23:43)
[2021-12-26 04:00] VITALS: BP 152/89
[2021-12-26] MEDS: DILTIAZEM HCL 30MG TABLET PO SCH ×5 (04:57→23:42)
[2021-12-26] MEDS: INSULIN LISPRO 100 UNITS/ML SUBCUT SCH ×4 (05:09→23:42)
[2021-12-26 08:00] VITALS: BP 167/94
[2021-12-26] MEDS: LEVETIRACETAM 500MG TABLET PO SCH ×2 (08:05→20:16)
[2021-12-26] MEDS: APIXABAN 2.5 MG TABLET PO SCH ×2 (08:05→17:12)
[2021-12-26] MEDS: DEXAMETHASONE 6MG TABLET PO SCH (08:07)
[2021-12-26] MEDS: MIDODRINE HCL 5MG TABLET PO SCH ×3 (08:08→17:09)
[2021-12-26 12:00] VITALS: BP 144/80
[2021-12-26 16:00] VITALS: BP 121/85
[2021-12-26 20:00] VITALS: BP 150/87
[2021-12-26] MEDS: ATORVASTATIN CALCIUM 40MG TABLET PO SCH (20:16)
[2021-12-27] VITALS: BP 141/93
[2021-12-27 04:00] VITALS: BP 128/77
[2021-12-27] MEDS: DILTIAZEM HCL 30MG TABLET PO SCH ×3 (05:02→17:41)
[2021-12-27] MEDS: BLOOD SUGAR DIAGNOSTIC STRIP TEST SCH ×3 (05:09→17:31)
[2021-12-27] MEDS: INSULIN LISPRO 100 UNITS/ML SUBCUT SCH ×3 (05:09→17:31)
[2021-12-27 08:25] VITALS: BP 150/93
[2021-12-27] MEDS: DEXAMETHASONE 6MG TABLET PO SCH (08:31)
[2021-12-27] MEDS: LEVETIRACETAM 500MG TABLET PO SCH ×2 (08:31→20:24)
[2021-12-27] MEDS: APIXABAN 2.5 MG TABLET PO SCH ×2 (08:31→16:35)
[2021-12-27] MEDS: MIDODRINE HCL 5MG TABLET PO SCH ×3 (08:32→16:35)
[2021-12-27 11:40] VITALS: BP 154/92
[2021-12-27 15:45] VITALS: BP 142/76
[2021-12-27 20:00] VITALS: BP 150/87
[2021-12-27] MEDS: ATORVASTATIN CALCIUM 40MG TABLET PO SCH (20:24)
[2021-12-28] VITALS: BP 178/98
[2021-12-28 04:00] VITALS: BP 156/93
[2021-12-28] MEDS: DILTIAZEM HCL 30MG TABLET PO SCH ×5 (05:54→23:56)
[2021-12-28] MEDS: INSULIN LISPRO 100 UNITS/ML SUBCUT SCH ×4 (05:54→18:00)
[2021-12-28] MEDS: BLOOD SUGAR DIAGNOSTIC STRIP TEST SCH ×4 (05:54→18:01)
[2021-12-28 08:00] VITALS: BP 155/89
[2021-12-28] MEDS: MIDODRINE HCL 5MG TABLET PO SCH ×3 (08:05→17:00)
[2021-12-28] MEDS: LEVETIRACETAM 500MG TABLET PO SCH ×2 (08:06→20:48)
[2021-12-28] MEDS: DEXAMETHASONE 6MG TABLET PO SCH (08:06)
[2021-12-28] MEDS: APIXABAN 2.5 MG TABLET PO SCH ×2 (08:06→18:27)
[2021-12-28 11:56] VITALS: BP 146/86
[2021-12-28 16:00] VITALS: BP 152/88
[2021-12-28 20:00] VITALS: BP 138/93
[2021-12-28] MEDS: ATORVASTATIN CALCIUM 40MG TABLET PO SCH (20:48)
[2021-12-29] VITALS: BP 151/100
[2021-12-29] MEDS: BLOOD SUGAR DIAGNOSTIC STRIP TEST SCH ×4 (00:09→23:56)
[2021-12-29 04:00] VITALS: BP 155/98
[2021-12-29] MEDS: INSULIN LISPRO 100 UNITS/ML SUBCUT SCH ×3 (05:15→12:00)
[2021-12-29] MEDS: DILTIAZEM HCL 30MG TABLET PO SCH ×4 (05:15→23:56)
[2021-12-29] MEDS: MIDODRINE HCL 5MG TABLET PO SCH ×3 (09:00→17:16)
[2021-12-29] MEDS: LEVETIRACETAM 500MG TABLET PO SCH ×2 (11:41→20:51)
[2021-12-29] MEDS: DEXAMETHASONE 6MG TABLET PO SCH (11:41)
[2021-12-29] MEDS: APIXABAN 2.5 MG TABLET PO SCH ×2 (11:41→17:16)
[2021-12-29 12:00] VITALS: BP 120/33
[2021-12-29 16:00] VITALS: BP 101/68
[2021-12-29 20:00] VITALS: BP 134/85
[2021-12-29] MEDS: ATORVASTATIN CALCIUM 40MG TABLET PO SCH (20:51)
[2021-12-30] VITALS: BP 143/92
[2021-12-30 04:00] VITALS: BP 142/97
[2021-12-30] MEDS: DILTIAZEM HCL 30MG TABLET PO SCH ×3 (05:12→18:40)
[2021-12-30] MEDS: INSULIN LISPRO 100 UNITS/ML SUBCUT SCH ×4 (05:17→18:00)
[2021-12-30] MEDS: BLOOD SUGAR DIAGNOSTIC STRIP TEST SCH ×3 (05:17→18:04)
[2021-12-30 08:00] VITALS: BP 147/96
[2021-12-30] MEDS: MIDODRINE HCL 5MG TABLET PO SCH ×3 (09:00→18:41)
[2021-12-30] MEDS: APIXABAN 2.5 MG TABLET PO SCH ×2 (09:43→18:40)
[2021-12-30] MEDS: LEVETIRACETAM 500MG TABLET PO SCH ×2 (09:43→20:54)
[2021-12-30] MEDS: DEXAMETHASONE 6MG TABLET PO SCH (09:43)
[2021-12-30 12:00] VITALS: BP 119/69
[2021-12-30] MEDS ORDERED: METOCLOPRAMIDE HCL 10MG/2ML VIAL IV PRN (14:00)
[2021-12-30 16:00] VITALS: BP 130/85
[2021-12-30 20:00] VITALS: BP 113/78
[2021-12-30] MEDS: ATORVASTATIN CALCIUM 40MG TABLET PO SCH (20:54)
[2021-12-31] VITALS (7 sets, daily range): BP systolic 104–131; BP diastolic 48–87
[2021-12-31] MEDS: DILTIAZEM HCL 30MG TABLET PO SCH ×4 (00:50→17:00)
[2021-12-31] MEDS: BLOOD SUGAR DIAGNOSTIC STRIP TEST SCH ×4 (00:50→17:21)
[2021-12-31] MEDS: INSULIN LISPRO 100 UNITS/ML SUBCUT SCH ×4 (05:36→17:21)
[2021-12-31] MEDS: DEXAMETHASONE 6MG TABLET PO SCH (08:03)
[2021-12-31] MEDS: MIDODRINE HCL 5MG TABLET PO SCH ×3 (08:03→16:02)
[2021-12-31] MEDS: LEVETIRACETAM 500MG TABLET PO SCH (08:03)
[2021-12-31] MEDS: APIXABAN 2.5 MG TABLET PO SCH ×2 (08:03→16:01)
== END 2021-12-31 21:25 | DRG 871 ==
LOC: ER 13:36 → 7EST 17:19 → EDBEDREQTM 17:22 → EDBEDREQ 17:22 → EDBEDREQSVC 17:22 → ENRESERV 18:31 → MICUSO 12-16 00:28 → 7EST 12-17 14:20 → 7WST 12-25 19:10
PROVIDERS: ADMIT Internal Medicine; ATTEND Internal Medicine
PROC: 5A09357 Assistance with Respiratory Ventilation, Less than 24 Consecutive Hours, Continuous Positive Airway Pressure (ICD-10-PCS; principal; 2021-12-15)
PROC: 5A0935A Assistance with Respiratory Ventilation, Less than 24 Consecutive Hours, High Flow/Velocity Cannula (ICD-10-PCS; 2021-12-21)
PROC: 5A1D70Z Performance of Urinary Filtration, Intermittent, Less than 6 Hours Per Day (ICD-10-PCS; 2021-12-22)
PROC: 5A1D70Z Performance of Urinary Filtration, Intermittent, Less than 6 Hours Per Day (ICD-10-PCS; 2021-12-26)
PROC: 5A1D70Z Performance of Urinary Filtration, Intermittent, Less than 6 Hours Per Day (ICD-10-PCS; 2021-12-29)
PROC: 5A1D70Z Performance of Urinary Filtration, Intermittent, Less than 6 Hours Per Day (ICD-10-PCS; 2021-12-31)
DX: A41.89 Other specified sepsis (principal); G93.41 Metabolic encephalopathy; N18.6 End stage renal disease; U07.1 COVID-19; J96.21 Acute and chronic respiratory failure with hypoxia; J12.82 Pneumonia due to coronavirus disease 2019; I47.1 Supraventricular tachycardia; I13.2 Hypertensive heart and chronic kidney disease with heart failure and with stage 5 chronic kidney disease, or end stage renal disease; J44.0 Chronic obstructive pulmonary disease with (acute) lower respiratory infection; E11.22 Type 2 diabetes mellitus with diabetic chronic kidney disease; E78.00 Pure hypercholesterolemia, unspecified; Z66 Do not resuscitate; I25.10 Atherosclerotic heart disease of native coronary artery without angina pectoris; I48.91 Unspecified atrial fibrillation; D63.8 Anemia in other chronic diseases classified elsewhere; L89.152 Pressure ulcer of sacral region, stage 2; G40.909 Epilepsy, unspecified, not intractable, without status epilepticus; I50.9 Heart failure, unspecified; R13.10 Dysphagia, unspecified; Z86.73 Personal history of transient ischemic attack (TIA), and cerebral infarction without residual deficits; Z87.891 Personal history of nicotine dependence; Z93.1 Gastrostomy status; Z95.810 Presence of automatic (implantable) cardiac defibrillator; Z99.2 Dependence on renal dialysis; Z79.01 Long term (current) use of anticoagulants; Z79.4 Long term (current) use of insulin; Z79.899 Other long term (current) drug therapy
CPT/HCPCS: 36415; 36600; 71045; 80048; 80053; 80202; 80305; 80320; 82375; 82805; 82947; 82962; 83036; 83605; 83880; 84484; 85025; 86705; 86709; 86803; 86850; 86900; 87340; 87426; 92610; 93005; 93306; 94640; 94660; 97161; 99291; A6261; C1893; C9803; J1160; J2543; J2930; J3370; J3490; J7042; J7060; J8540; U0003; U0005; G0480